=== PATIENT | male | born 1980 | race Caucasian/White ===

== ENCOUNTER 2016-05-13 21:53 | Inpatient (IN) | payer OTHER ==
[2016-05-13 22:53] LABS: Hematocrit 47 % (42-52); Hemoglobin 15.2 g/dl (14.0-18.0); Mean Corpuscular HGB Conc 32 g/dl (31-36); Mean Corpuscular Hemoglobin 27 pg (27-31); Mean Corpuscular Volume 83 fL (80-94); Mean Platelet Volume 8 um3 (7.4-10.4); Red Cell Distribution Width 14 % (10.5-15); White Blood Count 10.4 10^3/ul (3.5-10.8)
[2016-05-13 23:07] LABS: Anion Gap 6 mmol/L (2-11); BUN/Creatinine Ratio 14.5 (8-20); Blood Urea Nitrogen 12 mg/dL (6-24); CO2 Carbon Dioxide 27 mmol/L (22-32); Calcium 9.4 mg/dL (8.6-10.3); Chloride 104 mmol/L (101-111); EGFR African American 134.8 (>60); EGFR Non-African American 104.8 (>60); Glucose 93 mg/dL (70-100); Potassium 3.6 mmol/L (3.5-5.0); Sodium 137 mmol/L (133-145)
[2016-05-13 23:38] LABS: Acetaminophen < 15 mcg/mL; Alcohol 136 mg/dL (<10); Salicylate < 2.50 mg/dL (<30)
[2016-05-13 23:48] LABS: TSH (Thyroid Stimulating Horm) 2.92 mcIU/mL (0.34-5.60)
--- NOTE | 2016-05-14 11:02 | PN ---
Progress Note - Progress Note Note: Psychiatry - read in connection with Mental Health Evaluations 1-3, which I supervised. Bambi Raymond requires psychiatric hospitalization because of an increase in impairing symptoms in connection with his PTSD and co-morbidities - he had re- experiencing and homicidal thought content and expressed reduced barriers to violence and suicide. Involuntary status is justified. I personally interviewed him today and confirmed the main elements of his current history.
[2016-05-14 11:50] LABS: Syphilis Index < 0.1 Index
--- NOTE | 2016-05-14 13:18 | CONSULT ---
Consult Consult: Mr. Raymond presented to the ED after having stopped his prescribed meds and begun to self-medicate with street drugs. He has been having fantasies about killing people. He was medically cleared by the previous shift ad underwnt a MHE. They felt that he should be transferred and hospitalized for safety concerns and I agreed. I signed a 2PC form and he will be transferred in stable condition with a diagnosis of psychosis.
[2016-05-14] MEDS ORDERED: LORazepam TAB(*) 1 MG PO ONE (14:52)
[2016-05-14 15:02] LABS: Urine Bilirubin Negative (Negative); Urine Glucose Negative (Negative); Urine Nitrite Negative (Negative)
[2016-05-14 15:23] LABS: Benzodiazepine Urine Screen None Detected (None Detect)
[2016-05-14] MEDS ORDERED: Sertraline* 100 MG TAB PO ONE (15:36)
--- NOTE | 2016-05-14 20:43 | ED ---
Raza Alejandro Adam, scribed for Amando Vera MD on 05/13/16 at 2231 . Psychiatric Complaint - HPI Summary HPI Summary: Pt is a 35 year old male presenting with anxiety and concerns about increased drug use. He states that his eye started twitching 4 weeks ago and then he began having constant anxiety and diaphoresis. He states that this was followed by a drug relapse. He reports use of alcohol and marijuana today, as well as heroin and cocaine in the past week. He denies SI and HI but he feels like he is "imploding." His mother in the past year and he lost custody of his children over a year ago. He states that he was in the [employer] and suffers from PTSD. Positive tobacco use. - History Of Current Complaint Chief Complaint: EDMentalHealth Time Seen by Provider: 05/13/16 22:20 Hx Obtained From: Patient Onset/Duration: Gradual Onset, Lasting Weeks, Still Present Timing: Constant Severity Initially: Moderate Severity Currently: Moderate Character: Depressed, Anxious Aggravating Factor(s): Recent Stress Alleviating Factor(s): Nothing Has Suicidal: Denies: Thoughts Has Homicidal: Denies: Thoughts Recent Stressor(s): of mother Ingestion History: Type/Name Of Drug - EtOH, marijuana - Allergies/Home Medications Allergies/Adverse Reactions: Allergies Allergy/AdvReac Type Severity Reaction Status Date / Time [place] Allergy Severe Altered Verified 02/05/16 11:47 Mental Status Home Medications: Home Medications Hydrocortisone [id number] [Analpram Advanced] 1 applic [place] BID 05/14/16 [ History Confirmed 05/14/16] RX: Naproxen TAB* [Naprosyn TAB*] 250 mg PO Q12HR PRN 05/14/16 [History Confirmed 05/14/16] RX: Sertraline* [Zoloft*] 200 mg PO DAILY 05/14/16 [History Confirmed 05/14/16] PMH/Surg Hx/FS Hx/Imm Hx Musculoskeletal History: Reports: Hx Back Problems Psychiatric History: Reports: Hx Attention Deficit Hyperactivity Disorder - patient reports misdiagnosis, Hx Depression, Hx Post Traumatic Stress Disorder, Hx Inpatient Treatment, Hx Community Mental Health Tx, Hx Bipolar Disorder - patient reports misdiagnosis, Hx Suicide Attempt, Hx of Violent Episodes Against Others, Hx Substance Abuse Denies: Hx Eating Disorder Infectious Disease History: No Infectious Disease History: Reports: Hx Hepatitis Denies: Traveled Outside the [place] in Last 30 Days - Family History Known Family History: Positive: Cardiac Disease, Hypertension - Social History Occupation: Disabled Lives: Alone Alcohol Use: Occasionally Hx Substance Use: Yes Substance Use Type: Reports: Cocaine Substance Use Comment - Amount & Last Used: Marijuana; Cocaine; Opana Hx Tobacco Use: Yes Smoking Status (MU): Heavy Every Day Tobacco Smoker Review of Systems Constitutional: Negative Negative: Fever Positive: Anxious, Depressed All Other Systems Reviewed And Are Negative: Yes Physical Exam Triage Information Reviewed: Yes Vital Signs On Initial Exam: Initial Vitals Temp Pulse Resp BP Pulse Ox 98.7 F 102 20 126/81 98 05/13/16 21:54 05/13/16 21:54 05/13/16 21:54 05/13/16 21:54 05/13/16 21:54 Vital Signs Reviewed: Yes Appearance: Positive: No Pain Distress - Intoxicated Skin: Positive: Skin Color Reflects Adequate Perfusion Head/Face: Positive: Normal Head/Face Inspection Eyes: Positive: [place] Respiratory/Lung Sounds: Positive: Clear to Auscultation, Breath Sounds Present Cardiovascular: Positive: RRR Abdomen Description: Positive: Nontender, Soft Musculoskeletal: Positive: Strength/ROM Intact Neurological: Positive: Sensory/Motor Intact, Alert, Oriented to Person Place, Time Psychiatric: Positive: Depressed - Tearful Diagnostics - Vital Signs Vital Signs Temp Pulse Resp BP Pulse Ox 05/13/16 21:54 98.7 F 102 20 126/81 98 - Laboratory Lab Results: Lab Results 05/13/16 05/13/16 05/13/16 Range/Units 22:40 22:40 22:40 WBC 10.4 (3.5-10.8) 10^3/ul RBC 5.70 H (4.0-5.4) 10^6/ul Hgb 15.2 (14.0-18.0) g/dl Hct 47 (42-52) % MCV 83 (80-94) fL MCH 27 (27-31) pg MCHC 32 (31-36) g/dl RDW 14 (10.5-15) % Plt Count 189 (150-450) 10^3/ul MPV 8 (7.4-10.4) um3 Sodium 137 (133-145) mmol/L Potassium 3.6 (3.5-5.0) mmol/L Chloride 104 (101-111) mmol/L Carbon Dioxide 27 (22-32) mmol/L Anion Gap 6 (2-11) mmol/L BUN 12 (6-24) mg/dL Creatinine 0.83 (0.67-1.17) mg/dL Est GFR ( Amer) 134.8 (>60) Est GFR (Non-Af Amer) 104.8 (>60) BUN/Creatinine Ratio 14.5 (8-20) Glucose 93 (70-100) mg/dL Calcium 9.4 (8.6-10.3) mg/dL TSH 2.92 (0.34-5.60) mcIU/mL Urine Color Urine Appearance Urine pH (5-9) Ur Specific [place] (1.010-1.030) Urine Protein (Negative) Urine Ketones (Negative) Urine Blood (Negative) Urine Nitrate (Negative) Urine Bilirubin (Negative) Urine Urobilinogen (Negative) Ur Leukocyte Esterase (Negative) Urine Glucose (Negative) Salicylates < 2.50 (<30) mg/dL Urine Opiates Screen (None Detect) Acetaminophen < 15 mcg/mL Ur Barbiturates Screen (None Detect) Ur Phencyclidine Scrn (None Detect) Ur Amphetamines Screen (None Detect) U Benzodiazepines Scrn (None Detect) Urine Cocaine Screen (None Detect) U Cannabinoids Screen (None Detect) Serum Alcohol 136 H (<10) mg/dL Syphilis IgG Antibody Nonreactive (Nonreactive) 05/14/16 05/14/16 Range/Units 14:30 14:30 WBC (3.5-10.8) 10^3/ul RBC (4.0-5.4) 10^6/ul Hgb (14.0-18.0) g/dl Hct (42-52) % MCV (80-94) fL MCH (27-31) pg MCHC (31-36) g/dl RDW (10.5-15) % Plt Count (150-450) 10^3/ul MPV (7.4-10.4) um3 Sodium (133-145) mmol/L Potassium (3.5-5.0) mmol/L Chloride (101-111) mmol/L Carbon Dioxide (22-32) mmol/L Anion Gap (2-11) mmol/L BUN (6-24) mg/dL Creatinine (0.67-1.17) mg/dL Est GFR ( Amer) (>60) Est GFR (Non-Af Amer) (>60) BUN/Creatinine Ratio (8-20) Glucose (70-100) mg/dL Calcium (8.6-10.3) mg/dL TSH (0.34-5.60) mcIU/mL Urine Color Yellow Urine Appearance Cloudy Urine pH 7.0 (5-9) Ur Specific [place] 1.020 (1.010-1.030) Urine Protein Negative (Negative) Urine Ketones Negative (Negative) Urine Blood Negative (Negative) Urine Nitrate Negative (Negative) Urine Bilirubin Negative (Negative) Urine Urobilinogen Negative (Negative) Ur Leukocyte Esterase Negative (Negative) Urine Glucose Negative (Negative) Salicylates (<30) mg/dL Urine Opiates Screen None detected (None Detect) Acetaminophen mcg/mL Ur Barbiturates Screen None detected (None Detect) Ur Phencyclidine Scrn None detected (None Detect) Ur Amphetamines Screen None detected (None Detect) U Benzodiazepines Scrn None detected (None Detect) Urine Cocaine Screen None detected (None Detect) U Cannabinoids Screen Presumptive positive H (None Detect) Serum Alcohol (<10) mg/dL Syphilis IgG Antibody (Nonreactive) Result Diagrams: 05/13/16 22:40 05/13/16 22:40 Lab Statement: Any lab studies that have been ordered have been reviewed, and results considered in the medical decision making process. Course/Dx - Differential Dx/Clinical Impression Provider Diagnosis: Depression Discharge - Discharge Plan Condition: Stable [place] [facility] [place] The documentation as recorded by the Raza kowalski Adam accurately reflects the service I personally performed and the decisions made by Chuy fernández Scott, MD.
[2016-05-15] MEDS ORDERED: Sertraline* 100 MG TAB PO SCH (09:00)
[2016-05-15] MEDS ORDERED: hydrOXYzine HCL TAB* 50 MG PO ONE (10:27)
[2016-05-15] MEDS ORDERED: Mouth Piece, Nicotine* 1 EACH CARTRIDGE INH ONE (11:00)
[2016-05-15] MEDS: hydrOXYzine HCL TAB* 50 MG PO PRN ×2 (12:27→16:44)
[2016-05-15] MEDS ORDERED: Acetaminophen TAB* 325 MG PO PRN (13:00)
[2016-05-15] MEDS ORDERED: LORazepam TAB(*) 1 MG PO SCH (13:00)
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
[2016-05-16] MEDS: Sertraline* 100 MG TAB PO SCH (09:56)
[2016-05-16] MEDS: Folic Acid TAB* 1 MG PO SCH (09:57)
[2016-05-16] MEDS: Multivitamins/Minerals TAB PO SCH (09:57)
[2016-05-16] MEDS: Thiamine TAB* 100 MG TAB PO SCH (09:58)
--- NOTE | 2016-05-16 12:20 | PN ---
Subjective - Subjective Service Type: 03101 Hosp care 25 min moderate complexity Subjective: Jimmy reports he would prefer to stay here, but agrees with planned transfer to [facility] for the sake of payment for care, also moving on to PT from the psych admission there. He is pleasant and collaborative. He reports feeling tired and drained. He denies any dangerous intent/plan or psychosis. He remains concerned though that if he does not engage in adequate care, he may be at risk of from overdose on narcotics. He reports having found peace in practice of yoga and karate. He is looking forward to enrollment in a music production educational program, as he has found that music production gives him a similar euphoria as what he gets from drugs. Reports diet of rice, beans, vegetables and venison. Objective - Appearance Appearance: Healthy Appearing Dysmorphic Features: No Hygiene: Normal Grooming: Well Kept - Behavior Psychomotor Activities: Normal Exhibits Abnormal Movement: No - Attitude and Relatedness Attitude and Relatedness: Well Related Eye Contact: Good - Speech Quality: Unpressured Latencies: Normal Quantity: Appropriate - Mood Patient's Decription of Mood: "Tired, drained" - Affect Observed Affect: Depressed - moderate Affect Consistent with: Dysphoria - mild - Thought Process Patient's Thought Process: Coherent, Goal Directed Thought Content: No Passive Wish - but concerned re risk of from narcotic overdose, No Suicidal Planning, No Homicidal Ideation, No Paranoid Ideation - Sensorium Experiencing Hallucinations: No, Sensorium is Clear Type of Hallucinations: Visual: No, Auditory: No, Command: No - Level of Consciousness Level of Consciousness: Alert Orientation: Yes Intact, Yes Orientated to Time, Yes Orientated to Place, Yes Orientated to Person - Impulse Control Impulse Control: Intact - Insight and Judgement Insight and Judgement: Fair - Group Participation Particating in Group Activities: Yes - Medication Management Medication Management Adherence: Yes Assessment - Assessment Merits Inpatient Hospitalization: For Immediate Safety, For Stabilization, To Initiate Treatment, For Ongoing Evaluation, For Discharge Planning, Pending Safe DC Plan Inpatient DSM-IV Dx: Cocaine-induced mood disorder, cocaine/cannabis/alcohol/ opioid use disorders, PTSD by history Clinical Impression: Jimmy is a 35 year-old [place] who has a history of extensive drug use, PTSD and antisocial traits. He has been admitted pending transfer to the [facility] for further treatment in a safe and financially-supported setting following expression of SI and homicidal nightmares. A principal stressor is loss of contact with his 3 children because of conflict with their mothers, also the of his mother last fall. He tells me today his primary safety concern is accidental overdose on narcotics. He is seeking referral to substance abuse treatment following stabilization from acute psychiatric symptoms. Plan - Plan Treatment Plan: Name: JIMMY CORTEZ Birthdate: 1980 [id number] Continue current meds. Plan is toward transfer to [place] when LS available to sign off on transfer on Wednesday. He is engaging in groups and the milieu, and reports feeling good about being here. Medications: Current Medications Acetaminophen (Tylenol Tab*) 650 mg PO Q4H PRN PRN Reason: PAIN Folic Acid (Folvite Tab*) 1 mg PO DAILY [facility] Last Admin: 05/16/16 09:57 Dose: Not Given Hydroxyzine HCl (Atarax Tab*) 50 mg PO Q4H PRN PRN Reason: ANXIETY Last Admin: 05/15/16 16:44 Dose: 50 mg Lorazepam (Ativan Tab(*)) 0 mg PO .PER WAM SCORE [facility] PRN Reason: Protocol Multivitamins/Minerals (Theragran/Minerals Tab*) 1 tab PO DAILY [facility] Last Admin: 05/16/16 09:57 Dose: Not Given Nicotine (Nicotine Inhaler*) 10 mg INH Q2H PRN PRN Reason: CRAVING Sertraline HCl (Zoloft*) 100 mg PO DAILY [facility] Last Admin: 05/16/16 09:56 Dose: 100 mg Thiamine HCl (Vitamin B-1 Tab*) 100 mg PO DAILY [facility] Last Admin: 05/16/16 09:58 Dose: Not Given - Discharge Plan Discharge Plan: Inpatient Hospitalization - [facility]
[2016-05-16] MEDS: hydrOXYzine HCL TAB* 50 MG PO PRN (15:32)
[2016-05-17] MEDS: Multivitamins/Minerals TAB PO SCH (10:06)
[2016-05-17] MEDS: Sertraline* 100 MG TAB PO SCH (10:06)
[2016-05-17] MEDS: Folic Acid TAB* 1 MG PO SCH (10:06)
[2016-05-17] MEDS: Thiamine TAB* 100 MG TAB PO SCH (10:07)
[2016-05-17] MEDS: hydrOXYzine HCL TAB* 50 MG PO PRN (16:56)
[2016-05-18] MEDS: Sertraline* 100 MG TAB PO SCH (08:46)
[2016-05-18] MEDS: Thiamine TAB* 100 MG TAB PO SCH (08:47)
[2016-05-18] MEDS: Multivitamins/Minerals TAB PO SCH (08:47)
[2016-05-18] MEDS: Folic Acid TAB* 1 MG PO SCH (08:47)
[2016-05-18] MEDS: hydrOXYzine HCL TAB* 50 MG PO PRN ×2 (12:17→18:53)
--- NOTE | 2016-05-18 12:19 | PN ---
Subjective - Subjective Service Type: [id number] Hosp care 15 min low complexity Subjective: The patient is anxious and irritable when told he still does not have an available bed at the [facility]. "I feel like I'm being played here and it's starting to piss me off. I'm feeling like I should just leave here and go use drugs until I !" The patient is reassured that everything within our power is being done to facilitate his transfer, but that, ultimately, it is up to the [facility] and their bed availability status in terms of when he can be transferred. The patient denies any thoughts, intentions or plans to harm himself here on our unit. Objective - Appearance Appearance: Well Developed/Nourished Dysmorphic Features: No Hygiene: Normal Grooming: Well Kept - Behavior Psychomotor Activities: Abnormal-Decreased Exhibits Abnormal Movement: No - Attitude and Relatedness Attitude and Relatedness: Irritable Eye Contact: Fair - Speech Quality: Unpressured Latencies: Normal Quantity: Terse - Mood Patient's Decription of Mood: "Anxious" - Affect Observed Affect: Constricted Affect Consistent with: Dysphoria - Thought Process Patient's Thought Process: Coherent Thought Content: Yes Passive Wish, No Suicidal Planning, No Homicidal Ideation, No Paranoid Ideation - Sensorium Experiencing Hallucinations: No, Sensorium is Clear Type of Hallucinations: Visual: No, Auditory: No, Command: No - Level of Consciousness Level of Consciousness: Agitated Orientation: Yes Intact, Yes Orientated to Time, Yes Orientated to Place, Yes Orientated to Person - Impulse Control Impulse Control: Tenuous - Insight and Judgement Insight and Judgement: Poor - Group Participation Particating in Group Activities: No - Medication Management Medication Management Adherence: Yes Assessment - Assessment Merits Inpatient Hospitalization: For Immediate Safety, For Stabilization Inpatient DSM-IV Dx: Cocaine-induced mood disorder, cocaine/cannabis/alcohol/ opioid use disorders, PTSD by history Clinical Impression: 35 y.o. single, white, male [place] with a Hx of PTSD, sociopathy and polysubstance abuse self-referred seeking transfer to the [facility] in [place] due to rampant substance abuse, SI and homicidal dreams. Plan - Plan Treatment Plan: Name: JIMMY CORTEZ Birthdate: 1980 [id number] The patient awaits transfer to the [facility] in [place], [place], pending bed availability at that institution. It would not be safe to discharge him from this setting. Continued Medication Management: Continue Outpt Medication Medications: Current Medications Acetaminophen (Tylenol Tab*) 650 mg PO Q4H PRN PRN Reason: PAIN Folic Acid (Folvite Tab*) 1 mg PO DAILY [facility] Last Admin: 05/18/16 08:47 Dose: Not Given Hydroxyzine HCl (Atarax Tab*) 50 mg PO Q4H PRN PRN Reason: ANXIETY Last Admin: 05/17/16 16:56 Dose: 50 mg Lorazepam (Ativan Tab(*)) 0 mg PO .PER WAM SCORE [facility] PRN Reason: Protocol Multivitamins/Minerals (Theragran/Minerals Tab*) 1 tab PO DAILY [facility] Last Admin: 05/18/16 08:47 Dose: Not Given Nicotine (Nicotine Inhaler*) 10 mg INH Q2H PRN PRN Reason: CRAVING Sertraline HCl (Zoloft*) 100 mg PO DAILY [facility] Last Admin: 05/18/16 08:46 Dose: 100 mg Thiamine HCl (Vitamin B-1 Tab*) 100 mg PO DAILY [facility] Last Admin: 05/18/16 08:47 Dose: Not Given - Discharge Plan Discharge Plan: Inpatient Hospitalization
[2016-05-18] MEDS: Nicotine Inhaler* 10 MG AMP INH PRN (21:03)
[2016-05-19] MEDS: Sertraline* 100 MG TAB PO SCH (08:50)
[2016-05-19] MEDS: Multivitamins/Minerals TAB PO SCH (08:51)
[2016-05-19] MEDS: Nicotine Inhaler* 10 MG AMP INH PRN (14:19)
[2016-05-19] MEDS: hydrOXYzine HCL TAB* 50 MG PO PRN (14:19)
--- NOTE | 2016-05-19 16:10 | PN ---
Subjective - Subjective Service Type: [id number] Hosp care 15 min low complexity Subjective: Jimmy reports continued depression but without psychosis or dangerous intent/ plan. He is worried about hospital bills if the [place] does not pay for his care here. Objective - Appearance Appearance: Healthy Appearing Dysmorphic Features: No Hygiene: Normal Grooming: Well Kept - Behavior Psychomotor Activities: Normal Exhibits Abnormal Movement: No - Attitude and Relatedness Attitude and Relatedness: Cooperative Eye Contact: Good - Speech Quality: Unpressured Latencies: Normal Quantity: Appropriate - Mood Patient's Decription of Mood: "Depressed" - Affect Observed Affect: Tense Affect Consistent with: Dysphoria - Thought Process Patient's Thought Process: Coherent, Goal Directed Thought Content: No Passive Wish, No Suicidal Planning, No Homicidal Ideation, No Paranoid Ideation - Sensorium Experiencing Hallucinations: No, Sensorium is Clear Type of Hallucinations: Visual: No, Auditory: No, Command: No - Level of Consciousness Level of Consciousness: Alert Orientation: Yes Intact, Yes Orientated to Time, Yes Orientated to Place, Yes Orientated to Person - Impulse Control Impulse Control: Intact - Insight and Judgement Insight and Judgement: Fair - Group Participation Particating in Group Activities: Yes - Medication Management Medication Management Adherence: Yes Assessment - Assessment Merits Inpatient Hospitalization: For Stabilization, For Discharge Planning, Pending Safe DC Plan Inpatient DSM-IV Dx: Cocaine-induced mood disorder, cocaine/cannabis/alcohol/ opioid use disorders, PTSD by history Clinical Impression: Jimmy is a 35 year-old [place] who has a history of extensive drug use, PTSD and antisocial traits. He has been admitted pending transfer to the [facility] for further treatment in a safe and financially-supported setting following expression of SI and homicidal nightmares. A principal stressor is loss of contact with his 3 children because of conflict with their mothers, also the of his mother last fall. He tells me today his primary safety concern is accidental overdose on narcotics. He is seeking referral to substance abuse treatment following stabilization from acute psychiatric symptoms. 05.19.16 Jimmy reports continued depression. He feels he would still benefit from continued care following transfer to a [facility] facility for [facility] from this exacerbation of depressive symptoms. He is med, meal and group compliant. Plan - Plan Treatment Plan: Name: JIMMY CORTEZ Birthdate: 1980 [id number] Continue current meds. Plan is toward transfer to [place], but no bed came available today. He is engaging in groups and the milieu, and reports feeling good about being here for treatment of his depressive illness.. Medications: Current Medications Acetaminophen (Tylenol Tab*) 650 mg PO Q4H PRN PRN Reason: PAIN Hydroxyzine HCl (Atarax Tab*) 50 mg PO Q4H PRN PRN Reason: ANXIETY Last Admin: 05/19/16 14:19 Dose: 50 mg Multivitamins/Minerals (Theragran/Minerals Tab*) 1 tab PO DAILY [facility] Last Admin: 05/19/16 08:51 Dose: Not Given Nicotine (Nicotine Inhaler*) 10 mg INH Q2H PRN PRN Reason: CRAVING Last Admin: 05/19/16 14:19 Dose: 10 mg Sertraline HCl (Zoloft*) 100 mg PO DAILY [facility] Last Admin: 05/19/16 08:50 Dose: 100 mg - Discharge Plan Discharge Plan: Inpatient Hospitalization - transfer to [place]
[2016-05-20] MEDS: Sertraline* 100 MG TAB PO SCH (10:48)
[2016-05-20] MEDS: Multivitamins/Minerals TAB PO SCH (10:48)
[2016-05-20] MEDS: Nicotine Inhaler* 10 MG AMP INH PRN ×3 (10:49→20:31)
--- NOTE | 2016-05-20 10:51 | PN ---
Subjective - Subjective Service Type: [id number] Hosp care 15 min low complexity Subjective: The patient is laying in bed, withdrawn and irritable, particularly when notified that the [facility] in [place] still does not have a bed. He continues to endorse depression and lethargy with the complaint that "I'm not regulated yet. " He declines discharge, stating that he will immediately return to drug abuse if he goes home, adding that he could end up taking a lethal overdose. He has not been participating in group activities although he is reportedly eating and bathing appropriately and taking scheduled medications. Objective - Appearance Appearance: Well Developed/Nourished Dysmorphic Features: No Hygiene: Normal Grooming: Fairly Well Kept - Behavior Psychomotor Activities: Abnormal-Decreased Exhibits Abnormal Movement: No - Attitude and Relatedness Attitude and Relatedness: Withdrawn Eye Contact: Poor - Speech Quality: Unpressured Latencies: Normal Quantity: Terse - Mood Patient's Decription of Mood: "Sad" - Affect Observed Affect: Depressed Affect Consistent with: Dysphoria - Thought Process Patient's Thought Process: Coherent Thought Content: Yes Passive Wish, No Suicidal Planning, No Homicidal Ideation, No Paranoid Ideation - Sensorium Experiencing Hallucinations: No, Sensorium is Clear Type of Hallucinations: Visual: No, Auditory: No, Command: No - Level of Consciousness Level of Consciousness: Alert Orientation: Yes Intact, Yes Orientated to Time, Yes Orientated to Place, Yes Orientated to Person - Impulse Control Impulse Control: Poor - Insight and Judgement Insight and Judgement: Impaired - Group Participation Particating in Group Activities: No - Medication Management Medication Management Adherence: Yes Assessment - Assessment Merits Inpatient Hospitalization: For Immediate Safety, For Stabilization Inpatient DSM-IV Dx: Cocaine-induced mood disorder, cocaine/cannabis/alcohol/ opioid use disorders, PTSD by history Clinical Impression: 35 y.o. single, white, male [place] with a Hx of PTSD, sociopathy and polysubstance abuse self-referred seeking transfer to the [facility] in [place] due to rampant substance abuse, SI and homicidal dreams. Plan - Plan Treatment Plan: Name: JIMMY CORTEZ Birthdate: 1980 [id number] The patient awaits transfer to the [facility] in [place], [place], pending bed availability at that institution. It would not be safe to discharge him from this setting. Continued Medication Management: Continue Outpt Medication Medications: Current Medications Acetaminophen (Tylenol Tab*) 650 mg PO Q4H PRN PRN Reason: PAIN Hydroxyzine HCl (Atarax Tab*) 50 mg PO Q4H PRN PRN Reason: ANXIETY Last Admin: 05/19/16 14:19 Dose: 50 mg Multivitamins/Minerals (Theragran/Minerals Tab*) 1 tab PO DAILY [facility] Last Admin: 05/19/16 08:51 Dose: Not Given Nicotine (Nicotine Inhaler*) 10 mg INH Q2H PRN PRN Reason: CRAVING Last Admin: 05/19/16 14:19 Dose: 10 mg Sertraline HCl (Zoloft*) 100 mg PO DAILY [facility] Last Admin: 05/19/16 08:50 Dose: 100 mg - Discharge Plan Discharge Plan: Inpatient Hospitalization
--- NOTE | 2016-05-20 13:07 | PN ---
MHU: Group Therapy Note - Service Type Service Type: [id number] Group Psychotherapy - Cognitive Behavioral Group Therapy ( CBT):Patient was attentive and participatory in CBT programming this morning, and remained in good behavioral control. Patient expressed positive insights regarding relevant treatment interventions and goals.
[2016-05-20] MEDS: hydrOXYzine HCL TAB* 50 MG PO PRN (17:54)
[2016-05-21 08:22] VITALS: BP 105/55
[2016-05-21] MEDS: Multivitamins/Minerals TAB PO SCH (08:59)
[2016-05-21] MEDS: Sertraline* 100 MG TAB PO SCH (08:59)
[2016-05-21] MEDS: Nicotine Inhaler* 10 MG AMP INH PRN ×2 (09:02→15:04)
[2016-05-21] MEDS: hydrOXYzine HCL TAB* 50 MG PO PRN (16:14)
--- NOTE | 2016-05-22 12:58 | DS ---
ADDENDUM TO DISCHARGE SUMMARY DATED 05/15/2016 DATE OF ADMISSION: 05/15/2016. DATE OF DISCHARGE: 05/21/2016. ADDENDUM TO DISCHARGE SUMMARY IS FOLLOWS: The patient was slated for discharge to the [facility] in [place], [place] on Monday, May 16, 2016; however, it was discovered that since he was being transferred on a 2PC, involuntary legal status, that we would need this process to be signed off by the [facility]. Unfortunately, because it was the weekend, [facility] was unavai lable; therefore, we had to cancel his transfer. Unfortunately once May 18 came, [facility] was able to sign the consent for him to be transferred, but the [facility] in [place] no longer had any b eds. Ultimately, we had to wait the remainder of the week before a [facility] bed became available, which t his finally occurred on May 21. For the remainder of this hospitalization, the pat ient was calm, cooperative and collaborative with unit treatment offerings. It is notable that he c ontinued to express some ideas of self-harm, given the fact that if discharged home he stated that h e would immediately start using heavy drugs and alcohol again and could not guarantee that he would not kill himself by overdose. For this reason, we continued to press the [facility] which they ultimately did. He was discharged on May 21 in guarded condition a nd he will be receiving further care through the [place] system where he receives service connected disab ility benefits as a [place] . [id number]/CPS #: [id number]
== END 2016-05-21 17:45 | DRG 897 ==
LOC: ED 21:53 → BSU 05-15 10:28
PROVIDERS: ADMIT Psychiatry & Neurology Psychiatry; ATTEND Psychiatry & Neurology Psychiatry
DX: F14.94 Cocaine use, unspecified with cocaine-induced mood disorder (principal); F11.90 Opioid use, unspecified, uncomplicated; B19.20 Unspecified viral hepatitis C without hepatic coma; F60.2 Antisocial personality disorder; F43.10 Post-traumatic stress disorder, unspecified; F17.210 Nicotine dependence, cigarettes, uncomplicated; M54.9 Dorsalgia, unspecified; F12.90 Cannabis use, unspecified, uncomplicated; Z72.89 Other problems related to lifestyle
CPT/HCPCS: 36415; 80048; 80307; 80320; 80329; 81003; 84443; 85027; 86592; 90853; 93005; 99222; 99231; 99232; 99238; A9270-GY; G0480

== ENCOUNTER 2016-09-29 21:38 | Emergency (ER) | payer OTHER ==
[2016-09-29 21:44] VITALS: BP 124/78
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
[2016-09-29] MEDS ORDERED: Ibuprofen TAB* 400 MG PO ONE (22:19)
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
== END 2016-09-29 22:28 | disposition home or self-care (01) ==
LOC: ED 21:38
DX: S60.221A Contusion of right hand, initial encounter (principal); Y09 Assault by unspecified means; Y93.9 Activity, unspecified; Y92.9 Unspecified place or not applicable; Y99.9 Unspecified external cause status
CPT/HCPCS: 99282; A9270-GY

== ENCOUNTER → 2017-01-04 11:23 | Emergency (ER) | payer OTHER ==
[2017-01-04 13:28] LABS: Hematocrit 44 % (42-52); Hemoglobin 14.8 g/dl (14.0-18.0); Mean Corpuscular HGB Conc 34 g/dl (31-36); Mean Corpuscular Hemoglobin 28 pg (27-31); Mean Corpuscular Volume 84 fL (80-94); Mean Platelet Volume 8 um3 (7.4-10.4); Red Blood Count 5.27 10^6/ul (4.0-5.4); Red Cell Distribution Width 13 % (10.5-15); White Blood Count 7.8 10^3/ul (3.5-10.8)
[2017-01-04 13:34] LABS: Urine Bilirubin Negative (Negative); Urine Glucose Negative (Negative); Urine Nitrite Negative (Negative)
[2017-01-04 13:42] LABS: ALT 9 U/L (7-52); AST 14 U/L (13-39); Albumin 4.1 g/dL (3.2-5.2); Alkaline Phosphatase 66 U/L (34-104); Anion Gap 6 mmol/L (2-11); BUN/Creatinine Ratio 14.9 (8-20); Blood Urea Nitrogen 13 mg/dL (6-24); CO2 Carbon Dioxide 27 mmol/L (22-32); Calcium 9.3 mg/dL (8.6-10.3); Chloride 103 mmol/L (101-111); EGFR Non-African American 98.7 (>60); Globulin 2.9 g/dL (2-4); Glucose 98 mg/dL (70-100); Potassium 3.8 mmol/L (3.5-5.0); Sodium 136 mmol/L (133-145)
[2017-01-04 13:51] LABS: Benzodiazepine Urine Screen None Detected (None Detect)
[2017-01-04 14:14] LABS: Acetaminophen < 15 mcg/mL; Alcohol < 10 mg/dL (<10); Salicylate < 2.50 mg/dL (<30)
[2017-01-04 14:27] LABS: TSH (Thyroid Stimulating Horm) 3.32 mcIU/mL (0.34-5.60)
--- NOTE | 2017-01-04 21:38 | ED ---
Jing Alejandro Nilda, scribed for Scooter Butt MD on 01/04/17 at 1154 . Substance Abuse/Use - HPI Summary HPI Summary: This patient is a 36 year old M presenting to [facility] with a chief complaint of alcoholism and drug abuse. His drug of choice is cocaine last taken 6 hours ago. The patient rates the pain 2/10 in severity. Symptoms alleviated by nothing. Patient reports palpitations, emotional numbness, anxiety attack (last week), depression, and overall malaise. Patient denies thoughts of hurting self and others. Patient is currently on hydroxyzine and an antidepressant ( unspecified) that he discontinued last week. PMHx includes PTSD and anxiety. - History Of Current Complaint Chief Complaint: EDSubstanceAbuse Stated Complaint: MHE Time Seen by Provider: 01/04/17 11:44 Hx Obtained From: Patient Ingestion History: Type/Name Of Drug - cocaine, Approximate Time Of Ingestion - 6 hours ago Character: Depressed Alleviating Factor(s): Nothing Associated Signs And Symptoms: Palpitations, Other: - emotional numbness, depression, overall malaise - Allergies/Home Medications Allergies/Adverse Reactions: Allergies Allergy/AdvReac Type Severity Reaction Status Date / Time Orcutt Allergy Severe Altered Verified 09/29/16 21:39 Mental Status PMH/Surg Hx/FS Hx/Imm Hx Musculoskeletal History: Reports: Hx Back Problems Psychiatric History: Reports: Hx Attention Deficit Hyperactivity Disorder - patient reports misdiagnosis, Hx Depression, Hx Post Traumatic Stress Disorder, Hx Inpatient Treatment, Hx Community Mental Health Tx, Hx Bipolar Disorder - patient reports misdiagnosis, Hx Suicide Attempt, Hx of Violent Episodes Against Others, Hx Substance Abuse Denies: Hx Eating Disorder Infectious Disease History: Yes Infectious Disease History: Reports: Hx Hepatitis Denies: Traveled Outside the [place] in Last 30 Days - Family History Known Family History: Positive: Cardiac Disease, Hypertension, Diabetes - Social History Alcohol Use: Daily Hx Substance Use: Yes Substance Use Type: Reports: Cocaine, Marijuana Substance Use Comment - Amount & Last Used: last used 6 hours ago Hx Tobacco Use: Yes Smoking Status (MU): Heavy Every Day Tobacco Smoker Type: Cigarettes Amount Used/How Often: over a pack a day for the last 30 days Review of Systems Constitutional: Other - overall malaise Positive: Palpitations Psychological: Other - emotional numbness; negative thoughts of hurting self and others Positive: Anxious - panic attack last week, Depressed All Other Systems Reviewed And Are Negative: Yes Physical Exam Triage Information Reviewed: Yes Vital Signs On Initial Exam: Initial Vitals Temp Pulse Resp BP Pulse Ox 98.4 F 73 18 142/82 98 01/04/17 11:26 01/04/17 11:26 01/04/17 11:26 01/04/17 11:26 01/04/17 11:26 Vital Signs Reviewed: Yes Appearance: Positive: Well-Appearing, No Pain Distress Skin: Positive: Warm, Skin Color Reflects Adequate Perfusion, Dry Head/Face: Positive: Normal Head/Face Inspection Eyes: Positive: Normal ENT: Positive: Normal ENT inspection Neck: Positive: Supple, Nontender Respiratory/Lung Sounds: Positive: Clear to Auscultation, Breath Sounds Present Cardiovascular: Positive: RRR Abdomen Description: Positive: Nontender, Soft Bowel Sounds: Positive: Present Musculoskeletal: Positive: Normal Neurological: Positive: Normal Psychiatric: Positive: Other - blunt affect - Dede Coma Scale Coma Scale Total: 15 Diagnostics - Vital Signs Vital Signs Temp Pulse Resp BP Pulse Ox 01/04/17 11:42 72 96 01/04/17 11:26 98.4 F 73 18 142/82 98 - Laboratory Lab Results: Lab Results 01/04/17 01/04/17 01/04/17 Range/Units 13:03 13:03 13:10 WBC (3.5-10.8) 10^3/ul RBC (4.0-5.4) 10^6/ul Hgb (14.0-18.0) g/dl Hct (42-52) % MCV (80-94) fL MCH (27-31) pg MCHC (31-36) g/dl RDW (10.5-15) % Plt Count (150-450) 10^3/ul MPV (7.4-10.4) um3 Neut % (Auto) (38-83) % Lymph % (Auto) (25-47) % Day % (Auto) (1-9) % Eos % (Auto) (0-6) % Baso % (Auto) (0-2) % Absolute Neuts (auto) (1.5-7.7) 10^3/ul Absolute Lymphs (auto) (1.0-4.8) 10^3/ul Absolute Monos (auto) (0-0.8) 10^3/ul Absolute Eos (auto) (0-0.6) 10^3/ul Absolute Basos (auto) (0-0.2) 10^3/ul Absolute Nucleated RBC 10^3/ul Nucleated RBC % Sodium 136 (133-145) mmol/L Potassium 3.8 (3.5-5.0) mmol/L Chloride 103 (101-111) mmol/L Carbon Dioxide 27 (22-32) mmol/L Anion Gap 6 (2-11) mmol/L BUN 13 (6-24) mg/dL Creatinine 0.87 (0.67-1.17) mg/dL Est GFR ( Amer) 127.0 (>60) Est GFR (Non-Af Amer) 98.7 (>60) BUN/Creatinine Ratio 14.9 (8-20) Glucose 98 (70-100) mg/dL Calcium 9.3 (8.6-10.3) mg/dL Total Bilirubin 0.40 (0.2-1.0) mg/dL AST 14 (13-39) U/L ALT 9 (7-52) U/L Alkaline Phosphatase 66 (34-104) U/L Total Protein 7.0 (6.4-8.9) g/dL Albumin 4.1 (3.2-5.2) g/dL Globulin 2.9 (2-4) g/dL Albumin/Globulin Ratio 1.4 (1-3) TSH 3.32 (0.34-5.60) mcIU/mL Urine Color Yellow Urine Appearance Clear Urine pH 5.0 (5-9) Ur Specific Goehner 1.010 (1.010-1.030) Urine Protein Negative (Negative) Urine Ketones Negative (Negative) Urine Blood Negative (Negative) Urine Nitrate Negative (Negative) Urine Bilirubin Negative (Negative) Urine Urobilinogen Negative (Negative) Ur Leukocyte Esterase Negative (Negative) Urine Glucose Negative (Negative) Salicylates < 2.50 (<30) mg/dL Urine Opiates Screen None detected (None Detect) Acetaminophen < 15 mcg/mL Ur Barbiturates Screen None detected (None Detect) Ur Phencyclidine Scrn None detected (None Detect) Ur Amphetamines Screen None detected (None Detect) U Benzodiazepines Scrn None detected (None Detect) Urine Cocaine Screen Presumptive positive H (None Detect) U Cannabinoids Screen Presumptive positive H (None Detect) Serum Alcohol < 10 (<10) mg/dL 01/04/17 Range/Units 13:10 WBC 7.8 (3.5-10.8) 10^3/ul RBC 5.27 (4.0-5.4) 10^6/ul Hgb 14.8 (14.0-18.0) g/dl Hct 44 (42-52) % MCV 84 (80-94) fL MCH 28 (27-31) pg MCHC 34 (31-36) g/dl RDW 13 (10.5-15) % Plt Count 213 (150-450) 10^3/ul MPV 8 (7.4-10.4) um3 Neut % (Auto) 61.4 (38-83) % Lymph % (Auto) 27.9 (25-47) % Day % (Auto) 6.9 (1-9) % Eos % (Auto) 3.2 (0-6) % Baso % (Auto) 0.6 (0-2) % Absolute Neuts (auto) 4.8 (1.5-7.7) 10^3/ul Absolute Lymphs (auto) 2.2 (1.0-4.8) 10^3/ul Absolute Monos (auto) 0.5 (0-0.8) 10^3/ul Absolute Eos (auto) 0.3 (0-0.6) 10^3/ul Absolute Basos (auto) 0 (0-0.2) 10^3/ul Absolute Nucleated RBC 0.01 10^3/ul Nucleated RBC % 0.1 Sodium (133-145) mmol/L Potassium (3.5-5.0) mmol/L Chloride (101-111) mmol/L Carbon Dioxide (22-32) mmol/L Anion Gap (2-11) mmol/L BUN (6-24) mg/dL Creatinine (0.67-1.17) mg/dL Est GFR ( Amer) (>60) Est GFR (Non-Af Amer) (>60) BUN/Creatinine Ratio (8-20) Glucose (70-100) mg/dL Calcium (8.6-10.3) mg/dL Total Bilirubin (0.2-1.0) mg/dL AST (13-39) U/L ALT (7-52) U/L Alkaline Phosphatase (34-104) U/L Total Protein (6.4-8.9) g/dL Albumin (3.2-5.2) g/dL Globulin (2-4) g/dL Albumin/Globulin Ratio (1-3) TSH (0.34-5.60) mcIU/mL Urine Color Urine Appearance Urine pH (5-9) Ur Specific Goehner (1.010-1.030) Urine Protein (Negative) Urine Ketones (Negative) Urine Blood (Negative) Urine Nitrate (Negative) Urine Bilirubin (Negative) Urine Urobilinogen (Negative) Ur Leukocyte Esterase (Negative) Urine Glucose (Negative) Salicylates (<30) mg/dL Urine Opiates Screen (None Detect) Acetaminophen mcg/mL Ur Barbiturates Screen (None Detect) Ur Phencyclidine Scrn (None Detect) Ur Amphetamines Screen (None Detect) U Benzodiazepines Scrn (None Detect) Urine Cocaine Screen (None Detect) U Cannabinoids Screen (None Detect) Serum Alcohol (<10) mg/dL Result Diagrams: 01/04/17 13:10 01/04/17 13:10 Lab Statement: Any lab studies that have been ordered have been reviewed, and results considered in the medical decision making process. Course/Dx - Course Course Of Treatment: Mr. Raymond presented asking to speak with MHE. He was medically cleared and underwent a MHE. They felt that he shoule be transferred and we are holding him until the AM for that eventuality. - Diagnoses Provider Diagnoses: Depression Discharge - Discharge Plan Condition: Stable Disposition: OTHER Discharge Disposition Comment: Change of shift The documentation as recorded by the Jing kowalski Nilda accurately reflects the service I personally performed and the decisions made by me, Scooter Butt MD.
--- NOTE | 2017-01-05 12:36 | PN ---
ED Flex Patient Progress Note Subjective: This is a 36 year-old M who [facility]. Re- faxed information over to try and get an available bed. Still working on it. Pt offers no complaints at this time and is currently sleeping upon entering room. Objective: Vitals: Most recent vital signs documented below. General NAD, Alert and oriented x3. Heart: rrr at 72 bpm Lungs: CTA or with rales, rhonchi, wheezing Laboratory: Current laboratory results documented below. Assessment: pending [facility]. Plan: Pending psychiatric transfer. will follow up daily. Vital Signs Temp Pulse Resp BP Pulse Ox 98.4 F 52 18 142/82 95 01/04/17 11:26 01/04/17 13:00 01/04/17 11:26 01/04/17 11:26 01/04/17 13:00 Lab Results - Entire Visit 01/04/17 01/04/17 01/04/17 13:10 13:10 13:03 WBC 7.8 RBC 5.27 Hgb 14.8 Hct 44 MCV 84 MCH 28 MCHC 34 RDW 13 Plt Count 213 MPV 8 Neut % (Auto) 61.4 Lymph % (Auto) 27.9 Lyon % (Auto) 6.9 Eos % (Auto) 3.2 Baso % (Auto) 0.6 Absolute Neuts (auto) 4.8 Absolute Lymphs (auto) 2.2 Absolute Monos (auto) 0.5 Absolute Eos (auto) 0.3 Absolute Basos (auto) 0 Absolute Nucleated RBC 0.01 Nucleated RBC % 0.1 Sodium 136 Potassium 3.8 Chloride 103 Carbon Dioxide 27 Anion Gap 6 BUN 13 Creatinine 0.87 Est GFR ( Amer) 127.0 Est GFR (Non-Af Amer) 98.7 BUN/Creatinine Ratio 14.9 Glucose 98 Calcium 9.3 Total Bilirubin 0.40 AST 14 ALT 9 Alkaline Phosphatase 66 Total Protein 7.0 Albumin 4.1 Globulin 2.9 Albumin/Globulin Ratio 1.4 TSH 3.32 Urine Color Yellow Urine Appearance Clear Urine pH 5.0 Ur Specific Chauvin 1.010 Urine Protein Negative Urine Ketones Negative Urine Blood Negative Urine Nitrate Negative Urine Bilirubin Negative Urine Urobilinogen Negative Ur Leukocyte Esterase Negative Urine Glucose Negative Salicylates < 2.50 Urine Opiates Screen Acetaminophen < 15 Ur Barbiturates Screen Ur Phencyclidine Scrn Ur Amphetamines Screen U Benzodiazepines Scrn Urine Cocaine Screen U Cannabinoids Screen Serum Alcohol < 10 01/04/17 13:03 WBC RBC Hgb Hct MCV MCH MCHC RDW Plt Count MPV Neut % (Auto) Lymph % (Auto) Lyon % (Auto) Eos % (Auto) Baso % (Auto) Absolute Neuts (auto) Absolute Lymphs (auto) Absolute Monos (auto) Absolute Eos (auto) Absolute Basos (auto) Absolute Nucleated RBC Nucleated RBC % Sodium Potassium Chloride Carbon Dioxide Anion Gap BUN Creatinine Est GFR ( Amer) Est GFR (Non-Af Amer) BUN/Creatinine Ratio Glucose Calcium Total Bilirubin AST ALT Alkaline Phosphatase Total Protein Albumin Globulin Albumin/Globulin Ratio TSH Urine Color Urine Appearance Urine pH Ur Specific Chauvin Urine Protein Urine Ketones Urine Blood Urine Nitrate Urine Bilirubin Urine Urobilinogen Ur Leukocyte Esterase Urine Glucose Salicylates Urine Opiates Screen None detected Acetaminophen Ur Barbiturates Screen None detected Ur Phencyclidine Scrn None detected Ur Amphetamines Screen None detected U Benzodiazepines Scrn None detected Urine Cocaine Screen Presumptive positive H U Cannabinoids Screen Presumptive positive H Serum Alcohol
[2017-01-05 15:48] VITALS: BP 109/62
== END ==
LOC: ED 11:23
DX: R00.2 Palpitations (principal); F41.9 Anxiety disorder, unspecified; F32.9 Major depressive disorder, single episode, unspecified
CPT/HCPCS: 36415; 80053; 80307; 80320; 80329; 81003; 84443; 85025; 93005; 99285; G0480

== ENCOUNTER 2017-06-29 08:29 | Emergency (ER) | payer OTHER ==
[2017-06-29] MEDS ORDERED: Morphine INJ* 4 MG/ML 1 ML SYRINGE (NEW SYRINGE VERSION) IV ONE ×2 (08:51→09:09)
[2017-06-29] MEDS ORDERED: NS 0.9% 1000 ML* 1,000 ML IV ONE (08:51)
[2017-06-29] MEDS ORDERED: Ondansetron INJ* 2 MG/ML VIAL IV ONE ×2 (08:52→09:07)
[2017-06-29] MEDS ORDERED: Bacitracin OINTMENT* 0.5% 0.5 oz TUBE TOPICAL ONE (09:09)
[2017-06-29] MEDS ORDERED: Ondansetron INJ* 2 MG/ML VIAL ONE (09:09)
[2017-06-29] MEDS ORDERED: Morphine INJ* 4 MG/ML 1 ML SYRINGE (NEW SYRINGE VERSION) ONE (09:11)
[2017-06-29] MEDS ORDERED: traMADol TAB* 50 MG PO ONE (10:31)
[2017-06-29 12:06] VITALS: BP 110/74
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
== END 2017-06-29 12:05 | disposition home or self-care (01) ==
LOC: ED 08:29
DX: T25.021A Burn of unspecified degree of right foot, initial encounter (principal); M79.671 Pain in right foot; F17.210 Nicotine dependence, cigarettes, uncomplicated; X12.XXXA Contact with other hot fluids, initial encounter; Y92.9 Unspecified place or not applicable
CPT/HCPCS: 96374; 96375; 99285; A9270-GY; J2270; J2405

== ENCOUNTER 2017-07-07 12:28 | Emergency (ER) | payer OTHER ==
[2017-07-07 13:25] LABS: ABS Basophils 0.1 10^3/ul (0-0.2); ABS Eosinophils 0 10^3/ul (0-0.6); ABS Lymphocytes 1.9 10^3/ul (1.0-4.8); ABS Monocytes 0.9 10^3/ul (0-0.8); ABS Neutrophils 9.9 10^3/ul (1.5-7.7); ABS Nucleated RBC 0 10^3/ul; Eosinophil % 0.2 % (0-6); Hematocrit 40 % (42-52); Hemoglobin 13.6 g/dl (14.0-18.0); Lymphocyte % 14.8 % (25-47); Mean Corpuscular HGB Conc 34 g/dl (31-36); Mean Corpuscular Hemoglobin 28 pg (27-31); Mean Corpuscular Volume 82 fL (80-94); Mean Platelet Volume 6.9 um3 (7.4-10.4); Nucleated Red Blood Cells % 0; Platelet Count 227 10^3/ul (150-450); Red Blood Count 4.87 10^6/ul (4.0-5.4); Red Cell Distribution Width 13 % (10.5-15); White Blood Count 12.8 10^3/ul (3.5-10.8)
[2017-07-07 13:31] LABS: Urine Appearance Clear; Urine Blood Negative (Negative); Urine Color Yellow; Urine Ketones 1+ (Negative); Urine Protein Negative (Negative); Urine Specific Gravity 1.025 (1.010-1.030); Urine Urobilinogen Negative (Negative)
[2017-07-07 13:45] LABS: EGFR Non-African American 117.2 (>60)
--- NOTE | 2017-07-07 19:56 | ED ---
Jing Alejandro Nilda, scribed for Clementina Haley MD on 07/07/17 at 1914 . Progress - Progress Note Progress Note: This pt was s/o by Dr. Bartlett, pending dispo, awaiting MHE. [1944] Dr. Zafar's associate (psych) states pt is not SI or HI and can be D/C home with Dx of substance abuse disorder. Course/Dx - Course Course Of Treatment: This pt was s/o by Dr. Bartlett, pending dispo, awaiting MHE. [1944] Dr. Zafar's associate (psych) states pt is not SI or HI and can be D/C home with Dx of substance abuse disorder. - Diagnoses Provider Diagnoses: Substance abuse Discharge - Sign-Out/Discharge Documenting (check all that apply): Discharge - home - Discharge Plan Condition: Stable Disposition: HOME Referrals: Jim Peters MD [Primary Care Provider] - The documentation as recorded by the Jing kowalski Nilda accurately reflects the service I personally performed and the decisions made by me, Clementina Haley MD.
[2017-07-07 21:09] VITALS: BP 0/0
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
== END 2017-07-07 20:25 | disposition home or self-care (01) ==
LOC: ED 12:28
DX: F41.9 Anxiety disorder, unspecified (principal); F32.9 Major depressive disorder, single episode, unspecified; F14.10 Cocaine abuse, uncomplicated; Z88.8 Allergy status to other drugs, medicaments and biological substances; F17.210 Nicotine dependence, cigarettes, uncomplicated
CPT/HCPCS: 36415; 80053; 80307; 80320; 80329; 81003; 84443; 85025; 99283; G0480

== ENCOUNTER 2018-12-12 22:30 | Emergency (ER) | payer OTHER ==
[2018-12-12 22:35] VITALS: BP 129/94
== END 2018-12-13 01:07 | disposition left against medical advice (07) ==
LOC: ED 22:30
DX: Z53.21 Procedure and treatment not carried out due to patient leaving prior to being seen by health care provider (principal); Z88.8 Allergy status to other drugs, medicaments and biological substances
CPT/HCPCS: 99282

== ENCOUNTER 2020-06-03 14:03 | Inpatient (IN) ==
[2020-06-03 14:45] LABS: Urine Appearance Clear; Urine Bilirubin Negative (Negative); Urine Blood Negative (Negative); Urine Color Yellow; Urine Glucose Negative (Negative); Urine Ketones Negative (Negative); Urine Nitrite Negative (Negative); Urine Protein Negative (Negative); Urine Specific Gravity 1.017 (1.010-1.030); Urine Urobilinogen Negative (Negative)
[2020-06-03 15:01] LABS: Urine Benzodiazepine Screen None Detected (None Detect); Urine Cannabinoids Screen Presumptive Positive (None Detect); Urine Opiates Screen None Detected (None Detect)
[2020-06-03 15:29] LABS: ABS Eosinophils 0.1 10^3/ul (0-0.6); ABS Lymphocytes 1.6 10^3/ul (1.0-4.8); ABS Monocytes 0.9 10^3/ul (0-0.8); ABS Neutrophils 7.2 10^3/ul (1.5-7.7); Eosinophil % 1.2 %; Hematocrit 42 % (42-52); Hemoglobin 14.1 g/dL (14.0-18.0); Lymphocyte % 16.6 %; Mean Corpuscular HGB Conc 34 g/dL (31-36); Mean Corpuscular Hemoglobin 28 pg (27-31); Mean Corpuscular Volume 81 fL (80-94); Mean Platelet Volume 7.2 fL (7.4-10.4); Platelet Count 255 10^3/uL (150-450); Red Blood Count 5.12 10^6 /uL (4.18-5.48); Red Cell Distribution Width 15 % (10-15); White Blood Count 9.9 10^3/uL (3.5-10.8)
[2020-06-03 16:00] LABS: ALT 16 U/L (7-52); AST 18 U/L (13-39); Acetaminophen < 15 mcg/mL; Albumin 4.4 g/dL (3.2-5.2); Albumin/Globulin Ratio 1.5 (1-3); Alcohol, S < 10 mg/dL (<10); Alkaline Phosphatase 76 U/L (34-104); Anion Gap 8 mmol/L (2-11); BUN/Creatinine Ratio 17.5 (8-20); Blood Urea Nitrogen 14 mg/dL (6-24); CO2 Carbon Dioxide 26 mmol/L (22-32); Calcium 9.3 mg/dL (8.6-10.3); Chloride 105 mmol/L (101-111); EGFR African American 129.5 (>60); EGFR Non-African American 107.1 (>60); Glucose 89 mg/dL (70-100); Potassium 3.5 mmol/L (3.5-5.0); Salicylate < 2.50 mg/dL (<30); Sodium 139 mmol/L (135-145); Total Protein 7.4 g/dL (6.4-8.9)
[2020-06-03 16:15] LABS: TSH Ultra Thyroid Stim Horm 3.77 mcIU/mL (0.34-5.60)
[2020-06-03] MEDS ORDERED: Nicotine GUM 2MG FRUIT FLAVOR PO PRN (17:00)
[2020-06-03] MEDS ORDERED: Al Hydrox/Mg Hydrox/Simet LIQ 30 ML UDC PO PRN (17:00)
[2020-06-04] MEDS: Vitamin THERAPEUTIC TAB PO SCH (14:19)
[2020-06-04] MEDS: Nicotine PATCH 21 MG/24 HR PATCH TRANSDERM SCH (14:20)
[2020-06-05] MEDS: Vitamin THERAPEUTIC TAB PO SCH (08:41)
[2020-06-05] MEDS: Nicotine PATCH 21 MG/24 HR PATCH TRANSDERM SCH (08:41)
[2020-06-06] MEDS: Nicotine PATCH 21 MG/24 HR PATCH TRANSDERM SCH (07:42)
[2020-06-06] MEDS: Vitamin THERAPEUTIC TAB PO SCH (07:43)
[2020-06-07] MEDS: Vitamin THERAPEUTIC TAB PO SCH (07:46)
[2020-06-07] MEDS: Nicotine PATCH 21 MG/24 HR PATCH TRANSDERM SCH (09:57)
[2020-06-07] MEDS: OLANzapine 5 mg TAB*ODT PO PRN (20:44)
[2020-06-08] MEDS: Nicotine PATCH 21 MG/24 HR PATCH TRANSDERM SCH (10:40)
[2020-06-08] MEDS: Vitamin THERAPEUTIC TAB PO SCH (10:40)
[2020-06-09] MEDS: OLANzapine 5 mg TAB*ODT PO PRN ×2 (07:40→11:31)
[2020-06-09] MEDS: Nicotine PATCH 21 MG/24 HR PATCH TRANSDERM SCH (08:57)
[2020-06-09] MEDS: Vitamin THERAPEUTIC TAB PO SCH (08:57)
[2020-06-10] MEDS: Nicotine PATCH 21 MG/24 HR PATCH TRANSDERM SCH (07:26)
[2020-06-10] MEDS: Vitamin THERAPEUTIC TAB PO SCH (07:27)
[2020-06-10 08:11] VITALS: BP 114/70
[2020-06-10] MEDS: OLANzapine 5 mg TAB*ODT PO PRN (11:51)
== END 2020-06-10 12:25 | disposition home or self-care (01) | DRG 882 ==
LOC: ED 14:03 → BSU 17:00
PROVIDERS: ADMIT Psychiatry & Neurology Psychiatry; ATTEND Psychiatry & Neurology Psychiatry

== ENCOUNTER 2021-12-29 03:24 | Observation (INO) ==
[2021-12-29] MEDS ORDERED: Piperacillin/Tazobac ADVAN 3.375 GM in NS 0.9% 100 ml BAG 100 ML IV ONE (03:41)
[2021-12-29] MEDS ORDERED: Vancomycin 1,000 MG in NS 0.9% 250 ml 250 ML IVPB ONE (03:41)
[2021-12-29] MEDS ORDERED: Vancomycin 1,500 MG in NS 0.9% 250 ml 250 ML IVPB ONE (04:00)
[2021-12-29 05:44] LABS: ABS Basophils 0.1 10^3/ul (0-0.2); ABS Eosinophils 0.4 10^3/ul (0-0.6); ABS Lymphocytes 1.7 10^3/ul (1.0-4.8); ABS Neutrophils 6.9 10^3/ul (1.5-7.7); Eosinophil % 4.4 %; Hematocrit 37 % (42-52); Hemoglobin 12.2 g/dL (14.0-18.0); Lymphocyte % 16.8 %; Mean Corpuscular HGB Conc 33 g/dL (31-36); Mean Corpuscular Hemoglobin 27 pg (27-31); Mean Corpuscular Volume 81 fL (80-94); Mean Platelet Volume 6.8 fL (7.4-10.4); Platelet Count 305 10^3/uL (150-450); Red Blood Count 4.56 10^6 /uL (4.18-5.48); Red Cell Distribution Width 15 % (10-15); White Blood Count 10.1 10^3/uL (3.5-10.8)
[2021-12-29 05:51] LABS: Activated Partial Thrombo Time 29.2 seconds (26.0-38.0); INR 1.03 (0.89-1.11)
[2021-12-29 06:59] LABS: Albumin 3.8 g/dL (3.2-5.2); Albumin/Globulin Ratio 1.2 (1-3); C Reactive Protein 50.32 mg/L (<8.01); Calcium 9.2 mg/dL (8.6-10.3); Globulin 3.3 g/dL (2-4); Potassium 4.7 mmol/L (3.5-5.0); Total Bilirubin 0.3 mg/dL (0.2-1.0); Total Protein 7.1 g/dL (6.4-8.9); eGFR CKD-EPI 119.6 (>60)
[2021-12-29] MEDS ORDERED: Iohexol 350 (CONTRAST) 500 ML MDV IV ONE (08:39)
[2021-12-29] MEDS ORDERED: Lactated Ringers 1000 ml BAG 1,000 ML IV SCH (12:00)
[2021-12-29] MEDS ORDERED: Vancomycin per Pharmacy 1 EA NOTE FOLLOW UP SCH (12:00)
[2021-12-29 12:49] LABS: Ferritin 153.4 ng/mL (24-336)
[2021-12-29 12:53] LABS: Folate 11.62 ng/mL (5.90-24.80)
[2021-12-29] MEDS ORDERED: ceFAZolin 1 GM ADVAN 1 GM in NS 0.9% 50 ML 50 ML IVPB SCH (13:00)
[2021-12-29 15:06] LABS: Urine Benzodiazepine Screen None Detected (None Detect); Urine Cannabinoids Screen Presumptive Positive (None Detect); Urine Opiates Screen None Detected (None Detect)
[2021-12-29] MEDS: Thiamine 100 MG/ML 2 ml VIAL 100 MG in NS 0.9% 50 ML 50 ML IV SCH (15:36)
[2021-12-29] MEDS: Vancomycin 1,250 MG in NS 0.9% 250 ml 250 ML IVPB SCH (15:36)
[2021-12-29] MEDS ORDERED: Lorazepam PYXIS KEY PRN (18:13)
[2021-12-29] MEDS ORDERED: LORazepam IV 0-3 mg for WAM protocol IV PUSH SCH (19:00)
[2021-12-30] MEDS: Vancomycin 1,250 MG in NS 0.9% 250 ml 250 ML IVPB SCH ×4 (00:13→23:48)
[2021-12-30 06:55] LABS: ABS Basophils 0.1 10^3/ul (0-0.2); ABS Eosinophils 0.4 10^3/ul (0-0.6); ABS Lymphocytes 1.3 10^3/ul (1.0-4.8); ABS Monocytes 0.7 10^3/ul (0-0.8); Eosinophil % 5.8 %; Hematocrit 39 % (42-52); Hemoglobin 12.8 g/dL (14.0-18.0); Lymphocyte % 17.1 %; Mean Corpuscular HGB Conc 33 g/dL (31-36); Mean Corpuscular Hemoglobin 27 pg (27-31); Mean Corpuscular Volume 82 fL (80-94); Mean Platelet Volume 6.3 fL (7.4-10.4); Platelet Count 308 10^3/uL (150-450); Red Blood Count 4.75 10^6 /uL (4.18-5.48); Red Cell Distribution Width 15 % (10-15); White Blood Count 7.4 10^3/uL (3.5-10.8)
[2021-12-30] MEDS ORDERED: Vancomycin Trough Check NOTE FOLLOW UP ONE (07:00)
[2021-12-30 07:49] LABS: Calcium 8.8 mg/dL (8.6-10.3); Potassium 4.5 mmol/L (3.5-5.0); eGFR CKD-EPI 118.5 (>60)
[2021-12-30] MEDS: Multivitamins/Minerals TAB PO SCH (08:51)
[2021-12-30] MEDS: Thiamine 100 MG/ML 2 ml VIAL 100 MG in NS 0.9% 50 ML 50 ML IV SCH (14:43)
[2021-12-31] MEDS ORDERED: Vancomycin Trough Check NOTE FOLLOW UP ONE (07:00)
[2021-12-31 07:29] LABS: ABS Basophils 0.1 10^3/ul (0-0.2); ABS Eosinophils 0.4 10^3/ul (0-0.6); ABS Lymphocytes 1.1 10^3/ul (1.0-4.8); ABS Monocytes 0.5 10^3/ul (0-0.8); Eosinophil % 6.8 %; Hematocrit 38 % (42-52); Hemoglobin 12.1 g/dL (14.0-18.0); Lymphocyte % 18.4 %; Mean Corpuscular HGB Conc 32 g/dL (31-36); Mean Corpuscular Hemoglobin 26 pg (27-31); Mean Corpuscular Volume 82 fL (80-94); Mean Platelet Volume 6.6 fL (7.4-10.4); Platelet Count 322 10^3/uL (150-450); Red Blood Count 4.59 10^6 /uL (4.18-5.48); Red Cell Distribution Width 15 % (10-15)
[2021-12-31 07:57] LABS: Vancomycin Trough 9.7 mcg/mL; eGFR CKD-EPI 114.6 (>60)
[2021-12-31] MEDS: Vancomycin 1,250 MG in NS 0.9% 250 ml 250 ML IVPB SCH (08:57)
[2021-12-31] MEDS: Multivitamins/Minerals TAB PO SCH (08:57)
[2021-12-31 13:11] VITALS: BP 115/60
== END 2021-12-31 16:00 | disposition home or self-care (01) ==
LOC: EDHOLD 03:24 → ED 03:24 → SUATTDRO 10:25 → MEDTELE 19:33 → MED 12-31 12:52
PROVIDERS: ADMIT Pediatrics; ATTEND Hospitalist

== ENCOUNTER 2022-09-29 08:15 | Inpatient (IN) ==
[2022-09-29] MEDS ORDERED: Haloperidol 5 mg/ml SDV IV/IM 5 MG/ML AMP IM ONE (08:18)
[2022-09-29] MEDS ORDERED: LORazepam 2 mg VIAL 1 ml IM ONE (08:18)
[2022-09-29] MEDS ORDERED: Lorazepam PYXIS KEY PRN ×4 (08:19→22:58)
[2022-09-29] MEDS ORDERED: NS 0.9% 1000 ml BAG 1,000 ML IV ONE (08:31)
[2022-09-29] MEDS ORDERED: Vancomycin 1,000 MG in NS 0.9% 250 ml 250 ML IVPB ONE (08:34)
[2022-09-29 09:11] LABS: ABS Eosinophils 0.1 10^3/uL (0.0-0.5); ABS Lymphocytes 1.1 10^3/uL (1.0-4.8); ABS Monocytes 0.9 10^3/uL (0.0-1.1); ABS Neutrophils 8.7 10^3/uL (1.5-7.6); ABS Nucleated RBC 0.01 10^3/ul; Hematocrit 36.9 % (38-53); Hemoglobin 12.3 g/dL (13.2-16.3); Lymphocyte % 9.8 %; Mean Corpuscular Hemoglobin 26.7 pg (27-33); Mean Corpuscular Hgb Conc 33.4 g/dL (31-36); Mean Corpuscular Volume 79.8 fL (80-97); Mean Platelet Volume 6.8 fL (7.5-11.2); Nucleated Red Blood Cells % 0.1 /100 WBC (0.0-0.4); Platelet Count 256 10^3/uL (150-450); Red Blood Count 4.63 10^6/uL (4.06-5.63); Red Cell Distribution Width 15.3 % (12-17); White Blood Count 10.8 10^3/uL (3.6-10.2)
[2022-09-29] MEDS ORDERED: Piperacillin/Tazobac ADVAN 3.375 GM in NS 0.9% 100 ml BAG 100 ML IV ONE (09:28)
[2022-09-29 09:31] LABS: Albumin 3.9 g/dL (3.2-5.2); Albumin/Globulin Ratio 1.3 (1-3); C Reactive Protein 99.27 mg/L (<8.01); Calcium 8.7 mg/dL (8.6-10.3); Creatinine, Serum 0.65 mg/dL (0.67-1.17); Magnesium 1.9 mg/dL (1.9-2.7); Phosphorus 2.6 mg/dL (2.5-5.0); Potassium 3.6 mmol/L (3.5-5.0); Total Bilirubin 0.8 mg/dL (0.2-1.0); Total Protein 6.9 g/dL (6.4-8.9); eGFR CKD-EPI 119.9 (>60)
[2022-09-29] MEDS ORDERED: Iohexol 350 (CONTRAST) 500 ML MDV IV ONE (10:17)
[2022-09-29] MEDS ORDERED: Lactated Ringers 1000 ml BAG 1,000 ML IV ONE (12:04)
[2022-09-29] MEDS ORDERED: Lidocaine 1% VIAL 10 MG/ML VIAL 30 ML INJ ONE (14:22)
[2022-09-29] MEDS ORDERED: Ondansetron 4 mg VIAL 2 MG/ML 2 ml VIAL IV PRN (14:23)
[2022-09-29] MEDS ORDERED: Acetaminophen IV 1 GM/100ML 1,000 MG/100 ML BAG IV PRN (14:58)
[2022-09-29] MEDS ORDERED: Morphine 2 MG/ML SYRINGE IV PRN (15:00)
[2022-09-29] MEDS ORDERED: Zosyn per Pharmacy NOTE FOLLOW UP SCH (15:00)
[2022-09-29] MEDS ORDERED: Vancomycin per Pharmacy 1 EA NOTE FOLLOW UP SCH (15:00)
[2022-09-29] MEDS ORDERED: Lactated Ringers 1000 ml BAG 1,000 ML IV SCH (15:00)
[2022-09-29] MEDS ORDERED: LORazepam 2 mg VIAL 1 ml IV PUSH PRN ×2 (15:04→16:24)
[2022-09-29] MEDS ORDERED: ZOSYN 3.375 GM Q8H per EXTENDED INFUSION IV SCH (15:30)
[2022-09-29] MEDS ORDERED: fentaNYL 100 mcg/2 ml 50 MCG/ML VIAL ONE ×2 (16:16→17:27)
[2022-09-29] MEDS ORDERED: Lidocaine 2% PF 5 ML VIAL ONE (16:16)
[2022-09-29] MEDS ORDERED: Propofol 10 MG/ML 20 ML BTL ONE ×2 (16:16→17:00)
[2022-09-29] MEDS ORDERED: Midazolam 2 mg/2 ml VIAL 1 mg/ml 2 ml VIAL (2 mg) ONE (16:23)
[2022-09-29] MEDS ORDERED: Piperacillin/Tazobac 3.375 GM BAG ONE (16:32)
[2022-09-29] MEDS ORDERED: Ondansetron 4 mg VIAL 2 MG/ML 2 ml VIAL ONE (16:54)
[2022-09-29] MEDS ORDERED: Midazolam 5 mg/5 ml VIAL 1 mg/ml 5 ml VIAL (5 mg) ONE (17:20)
[2022-09-29] MEDS ORDERED: Midazolam 5 mg/5 ml VIAL 1 mg/ml 5 ml VIAL (5 mg) IV SLOW PU ONE (17:30)
[2022-09-29] MEDS ORDERED: fentaNYL 100 mcg/2 ml 50 MCG/ML VIAL IV SLOW PU ONE (17:31)
[2022-09-29] MEDS ORDERED: Naloxone 0.4 mg VIAL 0.4 mg/ml 1 ml VIAL IV PRN (17:36)
[2022-09-29] MEDS ORDERED: Haloperidol 5 mg/ml SDV IV/IM 5 MG/ML AMP IV SLOW PU PRN (17:43)
[2022-09-29] MEDS ORDERED: fentaNYL INFUSION 50 mcg/mL VL 2,500 MCG/50 ML VIAL IV SCH (17:45)
[2022-09-29 17:58] LABS: Urine Benzodiazepine Screen None Detected (None Detect); Urine Cannabinoids Screen Presumptive Positive (None Detect); Urine Opiates Screen None Detected (None Detect)
[2022-09-29] MEDS ORDERED: LORazepam VIAL (for drip) 100 MG in D5W 50 ml BAG 50 ML IV SCH (18:00)
[2022-09-29] MEDS ORDERED: Vancomycin 1,250 MG in NS 0.9% 250 ml 250 ML IVPB SCH (18:00)
[2022-09-29] MEDS ORDERED: Rocuronium 50 mg VIAL 10 mg/ml 5 ml VIAL (50 mg) ONE (18:24)
[2022-09-29] MEDS ORDERED: Rocuronium 50 mg VIAL 10 mg/ml 5 ml VIAL (50 mg) IV ONE (18:25)
[2022-09-29] MEDS ORDERED: Etomidate 20 mg/10 ml 2 MG/ML 10 ml VIAL IV ONE (18:26)
[2022-09-29] MEDS ORDERED: Propofol 10 mg/ml 100 ML BTL 1,000 MG/100 ML BTL ONE (18:41)
[2022-09-29] MEDS: Propofol 10 mg/ml 100 ML BTL 1,000 MG/100 ML BTL IV SCH ×2 (18:50→23:35)
[2022-09-29] MEDS: LORazepam 2 mg VIAL 1 ml IV PUSH PRN (19:03)
[2022-09-29] MEDS: fentaNYL 100 mcg/2 ml 50 MCG/ML VIAL IV SLOW PU PRN ×2 (19:04→19:57)
[2022-09-29] MEDS ORDERED: LORazepam 2 mg VIAL 1 ml IV PUSH ONE (19:55)
[2022-09-29] MEDS: Pantoprazole VIAL 40 MG VIAL IV SCH (21:57)
[2022-09-29] MEDS ORDERED: Zosyn 3.375 gm X 1 dose, then dose per Pharmacy IV ONE (22:00)
[2022-09-29] MEDS: Chlorhexidine MOUTHWASH 0.12% 15 ML UDC SWISH SPIT SCH (22:01)
[2022-09-29] MEDS: NORMOSOL-R pH 7.4 1000 mL BAG 1,000 ML IV SCH (22:02)
[2022-09-29] MEDS: Vancomycin 1,250 MG in NS 0.9% 250 ml 250 ML IVPB SCH (23:06)
[2022-09-30] MEDS: ZOSYN 3.375 GM Q8H per EXTENDED INFUSION IV SCH ×3 (02:08→19:14)
[2022-09-30] MEDS: Chlorhexidine MOUTHWASH 0.12% 15 ML UDC SWISH SPIT SCH ×6 (02:08→21:38)
[2022-09-30] MEDS: fentaNYL INFUSION 50 mcg/mL VL 2,500 MCG/50 ML VIAL IV SCH ×2 (02:35→19:10)
[2022-09-30 03:08] LABS: Urine Appearance Clear; Urine Bilirubin Negative (Negative); Urine Blood Negative (Negative); Urine Color Yellow; Urine Glucose Negative (Negative); Urine Ketones Trace (Negative); Urine Nitrite Negative (Negative); Urine Protein Negative (Negative); Urine Specific Gravity 1.025 (1.002-1.030); Urine Urobilinogen Negative (Negative)
[2022-09-30] MEDS: Propofol 10 mg/ml 100 ML BTL 1,000 MG/100 ML BTL IV SCH ×5 (04:41→19:35)
[2022-09-30] MEDS: Enoxaparin 40 MG/0.4 ML SYR SUBCUT SCH (05:12)
[2022-09-30 05:33] LABS: ABS Eosinophils 0.2 10^3/uL (0.0-0.5); ABS Lymphocytes 0.9 10^3/uL (1.0-4.8); ABS Monocytes 0.7 10^3/uL (0.0-1.1); Eosinophil % 2.3 %; Hematocrit 34.5 % (38-53); Hemoglobin 11.5 g/dL (13.2-16.3); Mean Corpuscular Hemoglobin 26.6 pg (27-33); Mean Corpuscular Hgb Conc 33.2 g/dL (31-36); Mean Corpuscular Volume 80.2 fL (80-97); Mean Platelet Volume 6.4 fL (7.5-11.2); Platelet Count 245 10^3/uL (150-450); Red Blood Count 4.31 10^6/uL (4.06-5.63); Red Cell Distribution Width 15.3 % (12-17); White Blood Count 8.8 10^3/uL (3.6-10.2)
[2022-09-30] MEDS: NORMOSOL-R pH 7.4 1000 mL BAG 1,000 ML IV SCH ×3 (05:38→22:02)
[2022-09-30 05:50] LABS: C Reactive Protein 170.91 mg/L (<8.01); Calcium 8.1 mg/dL (8.6-10.3); Creatinine, Serum 0.68 mg/dL (0.67-1.17); Magnesium 2.1 mg/dL (1.9-2.7); Phosphorus 3.3 mg/dL (2.5-5.0); Potassium 3.4 mmol/L (3.5-5.0); eGFR CKD-EPI 118.3 (>60)
[2022-09-30] MEDS: Vancomycin 1,250 MG in NS 0.9% 250 ml 250 ML IVPB SCH ×3 (06:32→22:05)
[2022-09-30] MEDS: KCL 20 MEQ/100 ML IVPREMIX 20 MEQ/100 ML BAG IV SCH ×3 (07:55→12:41)
[2022-09-30] MEDS ORDERED: chlorproMAZINE 25 MG/ML 2 ML (50 MG) IV SCH (12:00)
[2022-09-30] MEDS: chlorproMAZINE INJ 50 MG in NS 0.9% 50 ML IV SCH ×2 (14:00→23:28)
[2022-09-30] MEDS: Pantoprazole VIAL 40 MG VIAL IV SCH (20:26)
[2022-10-01] MEDS: Propofol 10 mg/ml 100 ML BTL 1,000 MG/100 ML BTL IV SCH ×5 (00:23→20:11)
[2022-10-01] MEDS: Chlorhexidine MOUTHWASH 0.12% 15 ML UDC SWISH SPIT SCH ×6 (01:49→21:31)
[2022-10-01] MEDS: ZOSYN 3.375 GM Q8H per EXTENDED INFUSION IV SCH ×3 (01:49→17:29)
[2022-10-01 05:07] LABS: ABS Eosinophils 0.3 10^3/uL (0.0-0.5); ABS Lymphocytes 0.7 10^3/uL (1.0-4.8); ABS Monocytes 0.6 10^3/uL (0.0-1.1); ABS Neutrophils 5.5 10^3/uL (1.5-7.6); Eosinophil % 4.3 %; Hematocrit 32.4 % (38-53); Hemoglobin 10.8 g/dL (13.2-16.3); Lymphocyte % 10.1 %; Mean Corpuscular Hemoglobin 27.3 pg (27-33); Mean Corpuscular Hgb Conc 33.5 g/dL (31-36); Mean Corpuscular Volume 81.3 fL (80-97); Mean Platelet Volume 6.3 fL (7.5-11.2); Nucleated Red Blood Cells % 0.1 /100 WBC (0.0-0.4); Platelet Count 246 10^3/uL (150-450); Red Blood Count 3.98 10^6/uL (4.06-5.63); Red Cell Distribution Width 15.3 % (12-17); White Blood Count 7.1 10^3/uL (3.6-10.2)
[2022-10-01 05:24] LABS: Calcium 8.1 mg/dL (8.6-10.3); Creatinine, Serum 0.64 mg/dL (0.67-1.17); Potassium 3.7 mmol/L (3.5-5.0); eGFR CKD-EPI 120.5 (>60)
[2022-10-01] MEDS: Enoxaparin 40 MG/0.4 ML SYR SUBCUT SCH (05:31)
[2022-10-01 05:50] LABS: Vancomycin Trough 9.6 mcg/mL
[2022-10-01] MEDS ORDERED: Vancomycin Trough Check NOTE FOLLOW UP ONE (06:00)
[2022-10-01] MEDS: NORMOSOL-R pH 7.4 1000 mL BAG 1,000 ML IV SCH ×3 (06:02→21:33)
[2022-10-01] MEDS: Vancomycin 1,250 MG in NS 0.9% 250 ml 250 ML IVPB SCH ×3 (06:23→22:18)
[2022-10-01] MEDS: fentaNYL 100 mcg/2 ml 50 MCG/ML VIAL IV SLOW PU PRN ×2 (11:11→13:44)
[2022-10-01] MEDS ORDERED: chlorproMAZINE 25 MG/ML 2 ML (50 MG) IV SCH (14:00)
[2022-10-01] MEDS: NS 0.9% IV SCH ×2 (14:45→20:11)
[2022-10-01] MEDS: CHLORPROMAZINE IV SCH ×2 (14:45→20:11)
[2022-10-01] MEDS: Senna TAB 8.6 mg TAB PO PRN (17:04)
[2022-10-01] MEDS: Pantoprazole VIAL 40 MG VIAL IV SCH (20:11)
[2022-10-02] MEDS: Propofol 10 mg/ml 100 ML BTL 1,000 MG/100 ML BTL IV SCH ×3 (00:12→08:20)
[2022-10-02] MEDS: ZOSYN 3.375 GM Q8H per EXTENDED INFUSION IV SCH ×3 (00:53→18:05)
[2022-10-02] MEDS: Chlorhexidine MOUTHWASH 0.12% 15 ML UDC SWISH SPIT SCH ×6 (00:53→20:23)
[2022-10-02 04:20] LABS: ABS Eosinophils 0.4 10^3/uL (0.0-0.5); ABS Lymphocytes 0.9 10^3/uL (1.0-4.8); ABS Monocytes 0.5 10^3/uL (0.0-1.1); ABS Neutrophils 3.4 10^3/uL (1.5-7.6); Hemoglobin 10.1 g/dL (13.2-16.3); Lymphocyte % 17.1 %; Mean Corpuscular Hemoglobin 27.3 pg (27-33); Mean Corpuscular Hgb Conc 33.6 g/dL (31-36); Mean Corpuscular Volume 81.1 fL (80-97); Mean Platelet Volume 6.2 fL (7.5-11.2); Nucleated Red Blood Cells % 0.1 /100 WBC (0.0-0.4); Platelet Count 235 10^3/uL (150-450); Red Cell Distribution Width 15.2 % (12-17); White Blood Count 5.2 10^3/uL (3.6-10.2)
[2022-10-02] MEDS: Enoxaparin 40 MG/0.4 ML SYR SUBCUT SCH (05:03)
[2022-10-02] MEDS: Vancomycin 1,250 MG in NS 0.9% 250 ml 250 ML IVPB SCH ×3 (05:24→22:28)
[2022-10-02] MEDS: NORMOSOL-R pH 7.4 1000 mL BAG 1,000 ML IV SCH (05:29)
[2022-10-02 06:58] LABS: Calcium 7.8 mg/dL (8.6-10.3); Creatinine, Serum 0.58 mg/dL (0.67-1.17); Magnesium 1.9 mg/dL (1.9-2.7); Potassium 3.6 mmol/L (3.5-5.0); eGFR CKD-EPI 124.1 (>60)
[2022-10-02] MEDS ORDERED: KCL 20 MEQ/100 ML IVPREMIX 20 MEQ/100 ML BAG IV SCH (07:00)
[2022-10-02] MEDS: NS 0.9% IV SCH ×3 (09:05→20:23)
[2022-10-02] MEDS: CHLORPROMAZINE IV SCH ×3 (09:05→20:23)
[2022-10-02] MEDS: LORazepam 2 mg VIAL 1 ml IV PUSH PRN ×4 (11:00→22:28)
[2022-10-02] MEDS: Pantoprazole VIAL 40 MG VIAL IV SCH (20:23)
[2022-10-03] MEDS: guaiFENesin 100 mg/5 ml LIQ unit dose cup PO SCH ×3 (00:33→11:48)
[2022-10-03] MEDS: LORazepam 2 mg VIAL 1 ml IV PUSH PRN ×3 (00:33→04:50)
[2022-10-03] MEDS: Chlorhexidine MOUTHWASH 0.12% 15 ML UDC SWISH SPIT SCH ×4 (00:33→14:36)
[2022-10-03] MEDS: ZOSYN 3.375 GM Q8H per EXTENDED INFUSION IV SCH (00:34)
[2022-10-03] MEDS: fentaNYL INFUSION 50 mcg/mL VL 2,500 MCG/50 ML VIAL IV SCH (04:08)
[2022-10-03] MEDS: Enoxaparin 40 MG/0.4 ML SYR SUBCUT SCH (04:08)
[2022-10-03 04:36] LABS: ABS Eosinophils 0.4 10^3/uL (0.0-0.5); ABS Lymphocytes 0.7 10^3/uL (1.0-4.8); ABS Monocytes 0.5 10^3/uL (0.0-1.1); ABS Neutrophils 3.9 10^3/uL (1.5-7.6); Eosinophil % 7.9 %; Hematocrit 34.1 % (38-53); Hemoglobin 11.3 g/dL (13.2-16.3); Lymphocyte % 12.4 %; Mean Corpuscular Hemoglobin 26.7 pg (27-33); Mean Corpuscular Hgb Conc 33.2 g/dL (31-36); Mean Corpuscular Volume 80.2 fL (80-97); Mean Platelet Volume 6.3 fL (7.5-11.2); Nucleated Red Blood Cells % 0.1 /100 WBC (0.0-0.4); Platelet Count 274 10^3/uL (150-450); Red Blood Count 4.25 10^6/uL (4.06-5.63); Red Cell Distribution Width 15.1 % (12-17); White Blood Count 5.5 10^3/uL (3.6-10.2)
[2022-10-03] MEDS: Vancomycin 1,250 MG in NS 0.9% 250 ml 250 ML IVPB SCH ×3 (04:50→21:10)
[2022-10-03 04:51] LABS: Calcium 8.2 mg/dL (8.6-10.3); Creatinine, Serum 0.48 mg/dL (0.67-1.17); Magnesium 1.8 mg/dL (1.9-2.7); Phosphorus 3.3 mg/dL (2.5-5.0); Potassium 3.8 mmol/L (3.5-5.0); eGFR CKD-EPI 131.4 (>60)
[2022-10-03] MEDS ORDERED: KCL 20 MEQ/100 ML IVPREMIX 20 MEQ/100 ML BAG IV ONE (06:09)
[2022-10-03] MEDS ORDERED: Magnesium Sulfate 2 gm BAG 2 GM/50 ML BAG IVPB ONE (06:09)
[2022-10-03] MEDS: NS 0.9% IV SCH ×2 (08:51→14:53)
[2022-10-03] MEDS: CHLORPROMAZINE IV SCH ×2 (08:51→14:53)
[2022-10-03] MEDS ORDERED: fentaNYL INFUSION 50 mcg/mL VL 2,500 MCG/50 ML VIAL IV SCH (10:00)
[2022-10-03] MEDS: Senna TAB 8.6 mg TAB PO PRN (11:49)
[2022-10-03] MEDS: chlorproMAZINE INJ 50 MG in NS 0.9% 50 ML IV SCH ×2 (14:42→22:57)
[2022-10-03] MEDS ORDERED: chlorproMAZINE 25 MG/ML 2 ML (50 MG) IV SCH (15:00)
[2022-10-04] MEDS: Vancomycin 1,250 MG in NS 0.9% 250 ml 250 ML IVPB SCH ×3 (04:29→20:31)
[2022-10-04] MEDS: Enoxaparin 40 MG/0.4 ML SYR SUBCUT SCH (04:29)
[2022-10-04 04:38] LABS: ABS Eosinophils 0.5 10^3/uL (0.0-0.5); ABS Lymphocytes 0.9 10^3/uL (1.0-4.8); ABS Monocytes 0.6 10^3/uL (0.0-1.1); ABS Neutrophils 3.9 10^3/uL (1.5-7.6); Eosinophil % 8.4 %; Hematocrit 35.3 % (38-53); Hemoglobin 11.8 g/dL (13.2-16.3); Lymphocyte % 14.6 %; Mean Corpuscular Hemoglobin 26.9 pg (27-33); Mean Corpuscular Hgb Conc 33.5 g/dL (31-36); Mean Corpuscular Volume 80.4 fL (80-97); Mean Platelet Volume 6.2 fL (7.5-11.2); Platelet Count 293 10^3/uL (150-450); Red Blood Count 4.39 10^6/uL (4.06-5.63); Red Cell Distribution Width 15.1 % (12-17); White Blood Count 5.9 10^3/uL (3.6-10.2)
[2022-10-04 04:55] LABS: Creatinine, Serum 0.48 mg/dL (0.67-1.17); Potassium 4.2 mmol/L (3.5-5.0)
[2022-10-04 04:56] LABS: Calcium 8.8 mg/dL (8.6-10.3); Phosphorus 3.3 mg/dL (2.5-5.0); eGFR CKD-EPI 131.4 (>60)
[2022-10-04] MEDS: chlorproMAZINE INJ 50 MG in NS 0.9% 50 ML IV SCH ×3 (08:30→20:28)
[2022-10-04] MEDS ORDERED: Famotidine IV 10 MG/ML 2 ml VIAL (20 mg) IV SLOW PU SCH (09:00)
[2022-10-04] MEDS: fentaNYL 100 mcg/2 ml 50 MCG/ML VIAL IV SLOW PU PRN ×2 (11:19→20:22)
[2022-10-05] MEDS: Enoxaparin 40 MG/0.4 ML SYR SUBCUT SCH (04:47)
[2022-10-05] MEDS: Vancomycin 1,250 MG in NS 0.9% 250 ml 250 ML IVPB SCH (04:47)
[2022-10-05 04:59] LABS: Hematocrit 35.5 % (38-53); Hemoglobin 11.8 g/dL (13.2-16.3); Mean Corpuscular Hgb Conc 33.3 g/dL (31-36); Mean Platelet Volume 6.4 fL (7.5-11.2); Platelet Count 317 10^3/uL (150-450); Red Blood Count 4.38 10^6/uL (4.06-5.63); Red Cell Distribution Width 15.3 % (12-17)
[2022-10-05 05:14] LABS: Calcium 8.6 mg/dL (8.6-10.3); Creatinine, Serum 0.61 mg/dL (0.67-1.17); Potassium 3.9 mmol/L (3.5-5.0); eGFR CKD-EPI 122.2 (>60)
[2022-10-05 05:41] LABS: Vancomycin Trough 8.1 mcg/mL
[2022-10-05] MEDS ORDERED: Vancomycin Trough Check NOTE FOLLOW UP ONE (06:00)
[2022-10-05] MEDS: chlorproMAZINE INJ 50 MG in NS 0.9% 50 ML IV SCH (08:43)
[2022-10-05] MEDS ORDERED: fentaNYL 100 mcg/2 ml 50 MCG/ML VIAL IV SLOW PU PRN (12:28)
[2022-10-05 12:56] LABS: Hepatitis C Antibody Reactive (Negative)
[2022-10-05] MEDS: Vancomycin 1000 MG in NS 0.9% 250 ML IVPB SCH ×2 (14:35→20:07)
[2022-10-05] MEDS: Senna TAB 8.6 mg TAB PO PRN (20:08)
[2022-10-05] MEDS: LORazepam 2 mg VIAL 1 ml IV PUSH PRN (21:24)
[2022-10-06] MEDS: Vancomycin 1000 MG in NS 0.9% 250 ML IVPB SCH ×2 (01:32→08:56)
[2022-10-06] MEDS: Enoxaparin 40 MG/0.4 ML SYR SUBCUT SCH (06:00)
[2022-10-06 06:24] LABS: Hematocrit 37.4 % (38-53); Hemoglobin 12.4 g/dL (13.2-16.3); Mean Corpuscular Hemoglobin 26.9 pg (27-33); Mean Corpuscular Hgb Conc 33.2 g/dL (31-36); Mean Platelet Volume 6.5 fL (7.5-11.2); Platelet Count 347 10^3/uL (150-450); Red Blood Count 4.62 10^6/uL (4.06-5.63); Red Cell Distribution Width 15.1 % (12-17); White Blood Count 5.7 10^3/uL (3.6-10.2)
[2022-10-06 06:40] LABS: Calcium 8.6 mg/dL (8.6-10.3); Creatinine, Serum 0.61 mg/dL (0.67-1.17); Potassium 4.2 mmol/L (3.5-5.0); eGFR CKD-EPI 122.2 (>60)
[2022-10-06 07:28] LABS: HIV 4th Generation Nonreactive (Nonreactive)
[2022-10-06] MEDS: LORazepam 2 mg VIAL 1 ml IV PUSH PRN (09:23)
[2022-10-06 11:45] VITALS: BP 117/75
[2022-10-06] MEDS ORDERED: DALBAVANCIN HCL (NF) 500 MG/25 ML VIAL IVPB ONE (12:19)
[2022-10-07] MEDS ORDERED: Vancomycin Trough Check NOTE FOLLOW UP ONE (07:30)
== END 2022-10-06 12:30 | disposition left against medical advice (07) | DRG 603 ==
LOC: EDHOLD 08:15 → ED 08:15 → SUATTDRO 14:14 → MED 15:24 → ICU 18:09 → MED 10-05 13:21
PROVIDERS: ADMIT Internal Medicine; ATTEND Internal Medicine